=== PATIENT | female | born 1965 | race African-American/Black ===

== ENCOUNTER 2017-04-17 09:09 | Emergency (ER) | payer MEDICAID ==
[~2017-04-17] VITALS: Ht 167.6 cm; Wt 70.0 kg
[2017-04-17 09:12] VITALS: BP 149/87
== END 2017-04-17 13:30 | disposition left against medical advice (07) ==
LOC: ER 09:17
DX: R10.9 Unspecified abdominal pain (principal); Z53.21 Procedure and treatment not carried out due to patient leaving prior to being seen by health care provider